=== PATIENT | male | born 1955 | race Caucasian/White ===

== ENCOUNTER 2016-05-02 09:24 | Emergency (ER) | payer OTHER ==
[2016-05-02 10:56] LABS: ABSOLUTE BASOPHILS # (AUTO) 0.1 10^3/uL (0.0-0.2); ABSOLUTE EOSINOPHILS # (AUTO) 0.1 10^3/uL (0.0-0.6); ABSOLUTE LYMPHOCYTES (AUTO) 1.4 10^3/uL (0.5-4.7); ABSOLUTE MONOCYTES (AUTO) 0.3 10^3/uL (0.1-1.4); ABSOLUTE NEUT (AUTO) 3.9 10^3/uL (1.7-8.2); BASOPHILS % (AUTO) 1.2 % (0-2); EOSINOPHILS % (AUTO) 1.6 % (0-6); HEMATOCRIT 46.1 % (37.9-51.0); HEMOGLOBIN 15.4 g/dL (13.5-17.0); HGB HCT DIFFERENCE 0.1; LYMPHOCYTES % (AUTO) 23.9 % (13-45); MEAN CORPUSCULAR HEMOGLOBIN 30.2 pg (27.0-33.4); MEAN CORPUSCULAR HGB CONC 33.4 g/dL (32.0-36.0); MEAN CORPUSCULAR VOLUME 90 fl (80-97); MONOCYTES % (AUTO) 4.6 % (3-13); RED CELL DISTRIBUTION WIDTH 13.4 % (11.5-14.0); SEGMENTED NEUTROPHILS % (AUTO) 68.7 % (42-78); WHITE BLOOD COUNT 5.7 10^3/uL (4.0-10.5)
[2016-05-02 11:05] LABS: APPEARANCE,URINE CLEAR; BILIRUBIN,URINE NEGATIVE (NEGATIVE); GLUCOSE, URINE NEGATIVE (NEGATIVE); KETONES,URINE NEGATIVE (NEGATIVE); LEUKOCYTE ESTERASE,URINE NEGATIVE (NEGATIVE); NITRITE,URINE NEGATIVE (NEGATIVE); PROTEIN,URINE 30 mg/dL (NEGATIVE); URINE SPECIFIC GRAVITY 1.017; UROBILINOGEN,URINE NEGATIVE mg/dL (<2.0)
[2016-05-02 11:16] LABS: ALANINE AMINOTRANSFERASE 24 U/L (21-72); ALBUMIN 4.2 g/dL (3.5-5.0); ALKALINE PHOSPHATASE 63 U/L (38-126); ANION GAP 8 (5-19); ASPARTATE AMINO TRANSFERASE 20 U/L (17-59); BILIRUBIN,TOTAL 0.6 mg/dL (0.2-1.3); BLOOD UREA NITROGEN 9 mg/dL (7-20); CALCIUM 9.3 mg/dL (8.4-10.2); CARBON DIOXIDE 30 mmol/L (22-30); CHLORIDE 104 mmol/L (98-107); CREATININE RESULT 0.88 mg/dL (0.52-1.25); GLUCOSE 140 mg/dL (75-110); LIPASE 92.7 U/L (23-300); POTASSIUM 4.5 mmol/L (3.6-5.0)
--- NOTE | 2016-05-02 11:52 | ER Document Report ---
Addendum entered and electronically signed by EYAL MCLEAN NP 05/02/16 13:15 : Course - Re-evaluation Re-evalutation: 05/02/16 13:15 pt has blood pressure meds at home that he has not taken, will take when he gets home. - Vital Signs Vital signs: Temp Pulse Resp BP Pulse Ox 97.9 F 71 18 135/93 H 100 05/02/16 09:29 05/02/16 09:29 05/02/16 09:29 05/02/16 09:29 05/02/16 09:29 - Laboratory Result Diagrams: 05/02/16 10:42 05/02/16 10:42 Laboratory results interpreted by me: 05/02/16 05/02/16 10:30 10:42 Glucose 140 H Urine Protein 30 H Urine Blood MODERATE H Original Note: ED GI/ - General Chief Complaint: Flank Pain Stated Complaint: FLANK PAIN Time seen by provider: 11:51 Mode of Arrival: Ambulatory Information source: Patient Notes: 60 yo male with left flank pain that radiates to LLQ since 1 pm yesterday. Eased some at end of shift. this morning it was still hurting. No hematuri, last few drops in UA in ER were red doptlets. Hx stones yhears aog. Recent dx of small left inquinal hernia. No hx bowel dx. No fever. Did have pain in left testicle 2 times yesteday. NO dysuria. TRAVEL OUTSIDE OF THE [place] IN LAST 30 DAYS: No - Related Data Allergies/Adverse Reactions: No Known Allergies Allergy (Verified 05/02/16 09:30) Past Medical History - General Information source: Patient - Social History Smoking Status: Current Every Day Smoker Chew tobacco use (# tins/day): No Drug Abuse: None Lives with: Spouse/Significant other Family History: Reviewed & Not Pertinent Patient has suicidal ideation: No Patient has homicidal ideation: No - Past Medical History Cardiac Medical History: Reports: Hx Hypertension Renal/ Medical History: Reports: Hx Kidney Stones - years ago. Denies: Hx Peritoneal Dialysis Surgical Hx: Negative - Immunizations Hx Diphtheria, Pertussis, Tetanus Vaccination: Yes Review of Systems - Review of Systems Constitutional: No symptoms reported EENT: No symptoms reported Cardiovascular: No symptoms reported Respiratory: No symptoms reported Gastrointestinal: See HPI Genitourinary: No symptoms reported Male Genitourinary: See HPI Musculoskeletal: See HPI Skin: No symptoms reported Hematologic/Lymphatic: No symptoms reported Neurological/Psychological: No symptoms reported Physical Exam - Vital signs Vitals: Temp Pulse Resp BP Pulse Ox 97.9 F 71 18 135/93 H 100 05/02/16 09:29 05/02/16 09:29 05/02/16 09:29 05/02/16 09:29 05/02/16 09:29 Interpretation: Hypertensive - mild - General General appearance: Appears well, Alert In distress: None - HEENT Head: Normocephalic, Atraumatic Eyes: Normal Conjunctiva: Normal Pupils: PERRL Mucous membranes: Normal Pharynx: Normal Neck: Supple. No: Lymphadenopathy - Respiratory Respiratory status: No respiratory distress Chest status: Nontender Breath sounds: Normal Chest palpation: Normal - Cardiovascular Rhythm: Regular Heart sounds: Normal auscultation Murmur: No - Abdominal Inspection: Normal Distension: No distension Bowel sounds: Normal Tenderness: Nontender. No: Tender Organomegaly: No organomegaly - Back Back: Normal, Nontender. No: CVA tenderness - Extremities General upper extremity: Normal inspection, Nontender, Normal color, Normal ROM , Normal temperature General lower extremity: Normal inspection, Nontender, Normal color, Normal ROM , Normal temperature, Normal weight bearing. No: Sena's sign - Neurological Neuro grossly intact: Yes Cognition: Normal Orientation: AAOx4 Willie Coma Scale Eye Opening: Spontaneous [place] Coma Scale Verbal: Oriented [place] Coma Scale Motor: Obeys Commands Willie Coma Scale Total: 15 Speech: Normal Motor strength normal: LUE, RUE, LLE, RLE Sensory: Normal - Psychological Associated symptoms: Normal affect, Normal mood - Skin Skin Temperature: Warm Skin Moisture: Dry Skin Color: Normal Skin irregularity: negative: Rash Course - Re-evaluation Re-evalutation: 05/02/16 12:50 I have consulted with the supervisory physician per [facility] Guidelines., dr. olivera - Vital Signs Vital signs: Temp Pulse Resp BP Pulse Ox 97.9 F 71 18 135/93 H 100 05/02/16 09:29 05/02/16 09:29 05/02/16 09:29 05/02/16 09:29 05/02/16 09:29 - Laboratory Result Diagrams: 05/02/16 10:42 05/02/16 10:42 Laboratory results interpreted by me: 05/02/16 05/02/16 10:30 10:42 Glucose 140 H Urine Protein 30 H Urine Blood MODERATE H Discharge - Discharge Clinical Impression: 8mm upper pole left kidney stone, 8mm bladder stone Condition: Good Disposition: HOME, SELF-CARE Instructions: Kidney Stone ([facility]), Acetaminophen, Use of [id number] Ibuprofen ([facility]), Family Physicians / Practices Additional Instructions: see urologist for follow up copy of CT report and labs given to you you still have the 8mm stone in your left upper pole of the kidney that is not causing any swelling see family practice doctor for recheck of your blood pressure within 2 weeks [facility]: Prasanth Sky MD Address: [address] [place] [address] Forms: Return to Work
[2016-05-02 13:18] VITALS: BP 143/100
== END 2016-05-02 13:24 | disposition home or self-care (01) ==
LOC: ER 09:24
DX: N21.0 Calculus in bladder (principal); N20.0 Calculus of kidney; R10.9 Unspecified abdominal pain; N50.812 Left testicular pain; F17.200 Nicotine dependence, unspecified, uncomplicated; I10 Essential (primary) hypertension; Z79.899 Other long term (current) drug therapy
CPT/HCPCS: 36415; 76380; 80053; 81001; 83690; 85025; 99284

== ENCOUNTER 2016-07-03 05:29 | Day surgery (SDC) | payer OTHER ==
[2016-06-26 10:43] LABS: ABSOLUTE BASOPHILS # (AUTO) 0.1 10^3/uL (0.0-0.2); ABSOLUTE EOSINOPHILS # (AUTO) 0.1 10^3/uL (0.0-0.6); ABSOLUTE LYMPHOCYTES (AUTO) 1.5 10^3/uL (0.5-4.7); ABSOLUTE MONOCYTES (AUTO) 0.5 10^3/uL (0.1-1.4); ABSOLUTE NEUT (AUTO) 4.5 10^3/uL (1.7-8.2); BASOPHILS % (AUTO) 0.8 % (0-2); EOSINOPHILS % (AUTO) 2.2 % (0-6); HEMOGLOBIN 14.5 g/dL (13.5-17.0); HGB HCT DIFFERENCE 0.5; LYMPHOCYTES % (AUTO) 22.3 % (13-45); MEAN CORPUSCULAR HEMOGLOBIN 29.9 pg (27.0-33.4); MEAN CORPUSCULAR HGB CONC 33.8 g/dL (32.0-36.0); MEAN CORPUSCULAR VOLUME 88 fl (80-97); MONOCYTES % (AUTO) 6.7 % (3-13); RED BLOOD COUNT 4.86 10^6/uL (4.35-5.55); RED CELL DISTRIBUTION WIDTH 13.5 % (11.5-14.0); WHITE BLOOD COUNT 6.7 10^3/uL (4.0-10.5)
[2016-06-26 10:59] LABS: ALANINE AMINOTRANSFERASE 28 U/L (21-72); ALKALINE PHOSPHATASE 63 U/L (38-126); ASPARTATE AMINO TRANSFERASE 20 U/L (17-59); BILIRUBIN,DIRECT 0.3 mg/dL (0.0-0.4); BILIRUBIN,TOTAL 0.5 mg/dL (0.2-1.3); TOTAL PROTEIN 6.8 g/dL (6.3-8.2)
--- NOTE | 2016-06-26 13:08 | EKG REPORT ---
SEVERITY:- NORMAL ECG - SINUS RHYTHM : Confirmed by: Mercedes Shukla MD 26-Jun-2016 13:07:40
[~2016-07-03 05:29] MED LIST: CEFAZOLIN 1 GM/D5W RTU 1 GM/50 ML RTUPB IV PRN; LACTATED RINGERS 1000 ML IV PRN; LIDOCAINE 0.5% INJ-PF (5 MG/ML) 50 ML SDV SUBCUT PRN
[2016-07-03] MEDS ORDERED: LIDOCAINE 0.5% INJ-PF (5 MG/ML) 50 ML SDV ONE (06:35)
[2016-07-03] MEDS ORDERED: BACITRACIN INJ 50,000 UNIT VIAL ONE (06:35)
[2016-07-03] MEDS ORDERED: BUPIVACAINE HCL 0.25 % INJ/PF (2.5 MG/1 ML) 30 ML VIAL ONE (06:35)
[2016-07-03] MEDS ORDERED: HYDROMORPHONE HCL INJ/PF 2 MG/ML AMPULE ONE (07:27)
[2016-07-03] MEDS ORDERED: FENTANYL CITRATE INJ/PF 100 MCG/2 ML AMPUL ONE ×2 (07:27→07:28)
[2016-07-03] MEDS ORDERED: MIDAZOLAM 2 MG/2 ML INJ ONE ×2 (07:28→08:01)
[2016-07-03] MEDS ORDERED: PROPOFOL INJ 200 MG/20 ML VIAL IV ONE (07:28)
[2016-07-03] MEDS ORDERED: ACETAMINOPHEN 100 ML IV ONE (07:28)
[2016-07-03] MEDS ORDERED: FENTANYL CITRATE INJ/PF 100 MCG/2 ML AMPUL IV PRN ×3 (08:33)
[2016-07-03] MEDS ORDERED: PROMETHAZINE HCL INJ 25 MG/1 ML VIAL IV PRN (08:33)
[2016-07-03] MEDS ORDERED: DIPHENHYDRAMINE HCL 50 MG/ML VIAL IV PRN (08:33)
[2016-07-03] MEDS ORDERED: ONDANSETRON HCL INJ/PF 4 MG/2 ML SDV IV PRN (08:33)
[2016-07-03] MEDS ORDERED: MORPHINE SULFATE 10 MG/ML INJ IV PRN (08:33)
--- NOTE | 2016-07-03 09:30 | PDOC DISCHARGE SUMMARY ---
Discharge Summary (SDC) - Discharge Final Diagnosis: #1 symptomatic left inguinal hernia. #2 tobacco use disorder. Date of Surgery: 07/03/16 Discharge Date: 07/03/16 Condition: Good Treatment or Instructions: #1 activities within moderation encouraged. Activities up to the level of walking encouraged. No heavy lifting over 10 pounds. #2 follow up in my office by appointment in about 1 week. Call for appointment. #3 the wounds covered clean and dry until office visit. #4 hold off on school/work until evaluation in office. #5 may shower in 48 hours, keep operated area as dry as possible. #6 discharge from ambulatory when ASU criteria met. #7 medications per medication reconciliation sheet. #8 prescriptions for Percocet and Toradol. May have Percocet up to 1 tablets every 3 hours while and ambulatory. Prescriptions: Ketorolac Tromethamine [Toradol 10 mg Tablet] 10 mg PO Q8HP #9 tablet Oxycodone HCl/Acetaminophen [Percocet 5-325 mg Tablet] 1 tab PO ASDIR PRN #15 tab PRN Reason: Discharge Diet: As Tolerated Respiratory Treatments at Home: Deep Breathing/Coughing, Incentive Spirometer Discharge Activity: Activity As Tolerated Report the Following to Your Physician Immediately: Shortness of Breath, Unusual Bleeding
[2016-07-03] MEDS ORDERED: DEXMEDETOMIDINE INJ 80 MCG/20 ML VIAL IV ONE (09:40)
[2016-07-03] MEDS ORDERED: OXYCODONE-ACETAMINOPHEN 5-325 MG TABLET PO PRN (10:37)
--- NOTE | 2016-07-03 10:55 | Operative Report ---
Operative Report DATE OF SURGERY: 07/03/16 PREOPERATIVE DIAGNOSIS: #1 symptomatic left inguinal hernia. #2 tobacco use disorder. POSTOPERATIVE DIAGNOSIS: #1 symptomatic left inguinal hernia. #2 tobacco use disorder. OPERATION: Repair of left inguinal hernia with mesh. SURGEON: LAN BARR LPN PRIVATE DUTY: none ANESTHESIA: Spinal TISSUE REMOVED OR ALTERED: Not applicable COMPLICATIONS: None ESTIMATED BLOOD LOSS: 10 mL. INTRAOPERATIVE FINDINGS: Of a thin hernia sac extending about 5 cm into the spermatic cord. Also an direct component medially to the epigastric vessels. Both were nicely dissected and reduced within the peritoneal space. The peroneal space was nicely developed and the femoral canal, direct and indirect areas nicely covered. The hernia mesh was deployed as flat as possible in the preperitoneal space. The direct hernia was also imbricated with 3-0 PDS sutures. PROCEDURE: After obtaining informed consent and going over the procedure with [the patient and his family], he was taken to the operating room, he was anesthetized appropriately. The abdomen was prepped and draped in the usual sterile fashion. After the universal timeout, in which it was verified that the patient received IV antibiotic, the procedure commenced. A transverse incision was made in the left lower abdomen abdominal, groin area, just above the pubic tubercle. 6 cm in length.Local, regional anesthesia was infiltrated, just before incision.. Incision was made with a [15 blade scalpel] . Dissection now proceeded through the subcutaneous tissue down to the external oblique aponeurosis. The external ring was identified and the external oblique opened in the line of its fibers. The inguinal canal was thus displayed. Dissection was facilitated by the use a headlight and using loupe magnification. The spermatic cord was dissected off the pubic tubercle and surrounded with a moist [place] drain, the cremasteric fascia was now incised longitudinally revealing the contents of the spermatic cord. The sac was readily evident and this was grasped with a hemostat. It was now dissected in a retrograde fashion into the retroperitoneal space. It was now reduced within the the preperitoneal space. The direct hernia was also dissected and replaced within the preperitoneal space. The direct deep defect was imbricated with interrupted 3-0 PDS sutures. The preperitoneal space was now developed circumferentially. Care was taken to make sure that the coverage covered both the direct area as well as the femoral canal. It easily accommodated a sponge which was removed. Hemostasis was checked for and ensured therein. The space between the external and internal oblique aponeuroses was now developed to accommodate the external portion of the mesh. Having done so a Prolene hernia system mesh was now folded, in the license issuer's approved fashion and inserted into the preperitoneal space. The internal portion was deployed flat in the preperitoneal space the external portion was unfolded and tucked beneath the external oblique. Secured with a 0 PDS suture to the internal oblique superiorly, the fascia adjacent to the pubic tubercle medially, inferiorly it was split up to the connector, the the split mesh was now used to surround the spermatic cord. It was reapproximated with a suture of 0 PDS. 0 PDS was now used to approximate the inferior border of the mesh to the shelving edge of Poupart's ligament with a single suture. Laterally the mesh was tucked beneath the external oblique. The external oblique was now reconstituted using a continuous suture of 3-0 PDS. 3-0 PDS interrupted sutures were used to approximate the subcutaneous tissues after removing the Bre drain. The skin was closed using a continuous subcuticular suture of 4-0 Monocryl reinforced with Steri-Strips over benzoin. Copies dictated operative report to Dr. Lan Ramírez MD.
[2016-07-03 14:20] VITALS: BP 156/87
[2016-07-03] MEDS ORDERED: KETOROLAC TROMETHAMINE 60 MG/2 ML SDV ONE (14:35)
== END 2016-07-03 14:05 | disposition home or self-care (01) ==
LOC: OROUT 05:29
PROVIDERS: ATTEND Surgery
PROC: 0YU60JZ Supplement Left Inguinal Region with Synthetic Substitute, Open Approach (ICD-10-PCS; principal; 2016-07-03 07:30)
DX: K40.90 Unilateral inguinal hernia, without obstruction or gangrene, not specified as recurrent (principal); D17.6 Benign lipomatous neoplasm of spermatic cord; I10 Essential (primary) hypertension; E11.9 Type 2 diabetes mellitus without complications; F17.210 Nicotine dependence, cigarettes, uncomplicated; Z79.84 Long term (current) use of oral hypoglycemic drugs; Z79.899 Other long term (current) drug therapy
CPT/HCPCS: 93005; 36415; 82962; 85025; 80076; 81001; 71020; 93010; 49505; C1781; J2250; J3490 ×3; J0690; J1885; J3010; J0131; J1170; J2704